=== PATIENT | male | born 1965 | race Caucasian/White ===

== ENCOUNTER 2023-06-07 20:50 | Emergency (ER) | payer OTHER ==
[2023-06-07 21:12] LABS: BASOPHILS % (AUTO) 0.5 %; BILIRUBIN,URINE NEGATIVE (NEGATIVE); EOSINOPHILS # (AUTO) 0.3 10^3/uL (0.0-0.7); GLUCOSE, URINE (UA) 500 mg/dL (NEGATIVE); HCT - HEMATOCRIT 43.8 % (42.0-52.0); HGB - HEMOGLOBIN 14.6 g/dL (14.0-18.0); KETONES,URINE (UA) NEGATIVE (NEGATIVE); LEUKOCYTE ESTERASE, URINE NEGATIVE (NEGATIVE); LYMPHOCYTES # (AUTO) 1.6 10^3/uL (1.5-3.5); MEAN CORPUSCULAR HEMOGLOBIN 29.3 pg (27.0-31.0); MEAN CORPUSCULAR HGB CONC 33.3 g/dL (32.0-36.0); MEAN PLATELET VOLUME 8.5 fL (7.4-11.4); MONOCYTES % (AUTO) 11.4 %; NEUTROPHILS # (AUTO) 5.6 10^3/uL (1.5-6.6); NITRITE,URINE NEGATIVE (NEGATIVE); OCCULT BLOOD,URINE SMALL (NEGATIVE); PLT - PLATELET COUNT 243 10^3/uL (130-450); PROTEIN,URINE NEGATIVE (NEGATIVE); RED BLOOD COUNT 4.98 10^6/uL (4.70-6.10); RED CELL DISTRIBUTION WIDTH 12.2 % (12.0-15.0); UROBILINOGEN,URINE 0.2 (NORMAL) E.U./dL (NORMAL); WHITE BLOOD COUNT 8.5 x10^3/uL (4.8-10.8)
[2023-06-07 21:15] LABS: CLARITY,URINE CLEAR (CLEAR)
[2023-06-07] MEDS ORDERED: SODIUM CHLORIDE 0.9% 1,000 ML IV STA (21:16)
[2023-06-07] MEDS ORDERED: KETOROLAC 15 MG/ML VIAL IVP STA (21:16)
[2023-06-07] MEDS ORDERED: MORPHINE 2 MG/ML CARPUJECT IVP STA (21:16)
--- NOTE | 2023-06-07 21:16 | ED Physician Documentation ---
PD HPI MALE - Stated complaint Stated Complaint: LT ABD PX - Chief complaint Chief Complaint: Abd Pain - History obtained from History obtained from: Patient - History of Present Illness Timing - onset: How many days ago (5) - Additional information Additional information: 57-year-old male presents by private vehicle from home for left-sided abdominal pain x1 week. Patient states that he has a history of kidney stones requiring lithotripsy and he feels like he may have a possible obstructing stone. He has been trying to push fluids but his pain seems stuck and so he is here today for evaluation. Last stone requiring lithotripsy was several years ago. Review of Systems Constitutional: denies: Fever, Chills GI: reports: Abdominal Pain. denies: Nausea, Vomiting Musculoskeletal: denies: Neck pain, Back pain, Extremity pain Neurologic: denies: Generalized weakness, Focal weakness, Numbness PD PAST MEDICAL HISTORY - Present Medications Home Medications: Ambulatory Orders Medication Instructions Recorded Confirmed ONDANSETRON ODT Prepack 2 [ZOFRAN 4 mg TL Q6H #30 tablet 06/07/23 ODT Prepack 2] Oxycodone HCl/Acetaminophen 1 tab PO DAILY PRN 06/07/23 06/07/23 [Oxycodone-Acetaminophen 5-325] Oxycodone HCl/Acetaminophen 1 each PO Q6H PRN #15 tablet 06/07/23 [Percocet 5-325 mg Tablet] Tamsulosin HCl [Flomax] 0.4 mg PO DAILY PRN 06/07/23 06/07/23 Tamsulosin [Flomax] 0.4 mg PO DAILY #30 cap 06/07/23 hydroCHLOROthiazide [Hydrodiuril] 25 mg PO DAILY 06/07/23 06/07/23 - Allergies Allergies/Adverse Reactions: Allergies Allergy/AdvReac Type Severity Reaction Status Date / Time No Known Drug Allergies Allergy Verified 06/07/23 20:57 PD ED PE NORMAL - Vitals Vital signs reviewed: Yes - General General: Alert and oriented X 3, No acute distress, Well developed/nourished - HEENT HEENT: Atraumatic - Neck Neck: Supple, no meningeal sign - Cardiac Cardiac: RRR, Strong equal pulses - Respiratory Respiratory: No respiratory distress, Clear bilaterally - Abdomen Abdomen: Soft, Other (LLQ tenderness to deep palpation) - Back Back: No CVA TTP, No spinal TTP - Derm Derm: Normal color, Warm and dry, No rash - Extremities Extremities: No deformity, No tenderness to palpate, Normal ROM s pain, No edema - Neuro Neuro: Alert and oriented X 3, 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, No motor deficit, Normal speech - Psych Psych: Normal mood, Normal affect Results - Vitals Vitals: Vital Signs - 24 hr 06/07/23 06/07/23 06/07/23 20:50 20:54 21:41 Temperature 36.0 C L 36.5 C Heart Rate 128 H 128 H 106 H Respiratory 16 16 16 Rate Blood Pressure 136/76 H 136/76 H 144/100 H O2 Saturation 97 97 96 06/07/23 06/07/23 23:00 23:20 Temperature 36.8 C 36.7 C Heart Rate 92 91 Respiratory 16 16 Rate Blood Pressure 127/90 H 127/90 H O2 Saturation 99 100 Oxygen O2 Source Room air - Labs Labs: Laboratory Tests 06/07/23 06/07/23 06/07/23 21:02 21:02 21:02 WBC 8.5 RBC 4.98 Hgb 14.6 Hct 43.8 MCV 88.0 MCH 29.3 MCHC 33.3 RDW 12.2 Plt Count 243 MPV 8.5 Neut # (Auto) 5.6 Lymph # (Auto) 1.6 [place] # (Auto) 1.0 Eos # (Auto) 0.3 Baso # (Auto) 0.0 Absolute Nucleated RBC 0.00 Nucleated RBC % 0.0 Sodium 134 L Potassium 3.2 L Chloride 97 L Carbon Dioxide 30 Anion Gap 7.0 BUN 24 H Creatinine 1.7 H Estimated GFR (MDRD) 42 L Glucose 193 H Calcium 9.8 Total Bilirubin 0.7 AST 12 ALT 12 Alkaline Phosphatase 60 Total Protein 7.3 Albumin 4.7 Globulin 2.6 Albumin/Globulin Ratio 1.8 Lipase 37 Urine Color YELLOW Urine Clarity CLEAR Urine pH 6.0 Ur Specific [place] 1.020 Urine Protein NEGATIVE Urine Glucose (UA) 500 H Urine Ketones NEGATIVE Urine Occult Blood SMALL H Urine Nitrite NEGATIVE Urine Bilirubin NEGATIVE Urine Urobilinogen 0.2 (NORMAL) Ur Leukocyte Esterase NEGATIVE Urine RBC 11-25 H Urine WBC 0-3 Ur Squamous Epith Cells NONE SEEN Urine Bacteria None Seen Ur Microscopic Review INDICATED Urine Culture Comments NOT INDICATED PD Medical Decision Making - ED course Complexity details: reviewed results, re-evaluated patient, considered differential, d/w patient, d/w family ED course: Well-appearing patient with persistent left-sided pain that is consistent with previous renal stones. Tachycardic in triage, however when in ED bed patient is resting comfortably and vital signs are normal. No CVA tenderness bilaterally. IV fluids, pain medications ordered. Will order labs and CT scan. Pain entirely resolved with administered medications. Laboratory work significant for creatinine 1.7, no previous for comparisons, patient does not know his normal kidney function. CT scan shows 6mm obstructing stone with some perinephric stranding. UA negative for infection. Patient and informed of all lab and imaging results at bedside. They requested a copy of the patient's CT on disc [place] Patient will be prescribed pain medications, nausea medications, Flomax. He was instructed to avoid any NSAIDs. Strict ED return precautions discussed. Departure - Departure Disposition: 01 Home, Self Care Clinical Impression: Renal colic Instructions: ED Stone Renal W Colic Prescriptions: Tamsulosin [Flomax] 0.4 mg PO DAILY #30 cap Oxycodone HCl/Acetaminophen [Percocet 5-325 mg Tablet] 1 each PO Q6H PRN #15 tablet PRN Reason: Pain 5-7 ONDANSETRON ODT Prepack 2 [ZOFRAN ODT Prepack 2] 4 mg TL Q6H #30 tablet Forms: PCP List Discharge Date/Time: 06/07/23 23:26
[2023-06-07 21:21] LABS: BACTERIA,URINE None Seen /HPF (None Seen); SQUAMOUS EPITHELIAL CELL,UR NONE SEEN (<= Few); WBC,URINE 0-3 /HPF (0-3)
[2023-06-07 21:36] LABS: ALBUMIN 4.7 g/dL (3.2-5.5); ALBUMIN/GLOBULIN RATIO 1.8 (1.0-2.2); BILIRUBIN,TOTAL 0.7 mg/dL (0.2-1.0); CALCIUM 9.8 mg/dL (8.5-10.3); CREATININE 1.7 mg/dL (0.6-1.3); POTASSIUM 3.2 mmol/L (3.5-4.5); TOTAL PROTEIN 7.3 g/dL (6.4-8.9)
--- NOTE | 2023-06-07 22:50 | CT Report ---
PROCEDURE: ABDOMEN/PELVIS WO INDICATIONS: LLQ PAIN, HX STONES TECHNIQUE: A CT scan of the abdomen and pelvis was performed without the use of intravenous contrast. Images we re recorded and evaluated at appropriate window settings. Reformats: coronal and sagittal. For radiat ion dose reduction, the following was used: automated exposure control, adjustment of mA and/or kV ac cording to patient size. COMPARISON: None. FINDINGS: Image quality: Excellent. Lung bases and heart: Unremarkable. Liver: No solid mass. Gallbladder and biliary tree: No radiopaque stones or wall thickening. No biliary dilation. Spleen: No splenomegaly. Pancreas: No pancreatic ductal dilation. Adrenals: No adrenal nodule. Kidneys and ureters: Multiple small punctate nonobstructing renal stones noted in the right kidney me asuring up to 4 mm in size. Right ureter is normal in course and caliber. There is moderate left hydr oureteronephrosis secondary to an obstructing 6 mm ureteral stone visualized in the mid left ureter. This stone measures approximately 900 Hounsfield units. Mild perinephric and periureteral stranding o n the left. Other nonobstructing left renal stones are visualized measuring up to 4 mm in size. No re nal cystic lesion which requires follow up. No solid mass. Bowel and peritoneum: No bowel distension. No pathologic free fluid. Normal appendix. Lymph nodes: No central or retroperitoneal adenopathy. Vessels: No infrarenal aortic aneurysm. Mild atherosclerotic calcifications. PELVIS Reproductive organs: Unremarkable. Bladder: No wall thickness, accounting for underdistention. Pelvic lymph nodes: No pelvic adenopathy by size criteria. Bones: No aggressive osseous abnormality. No acute compression fractures. Other: No significant ventral or inguinal hernia. IMPRESSION: Obstructing 6 mm mid left ureteral stone with associated moderate left hydroureteronephrosis. Mild le ft perinephric and periureteral stranding. Recommend clinical and laboratory correlation to exclude p ossible concurrent infectious uropathy. Additional punctate left renal stones measuring up to 4 mm as well as multiple small punctate nonobst ructing renal stones on the right measuring up to 4 mm. Normal appendix. Reviewed by: Dedrick Chen MD on 06/07/2023 10:48 PM PDT Approved by: Dedrick Chen MD on 06/07/2023 10:48 PM PDT Station ID: [id number]
[2023-06-07 23:17] VITALS: BP 127/90
[2023-06-07 23:26] VITALS: O2SAT 100
== END 2023-06-07 23:26 | disposition home or self-care (01) ==
LOC: ED 20:50
DX: N13.6 Pyonephrosis (principal)
CPT/HCPCS: 36415; 80053; 81001; 81003; 83690; 85025; 87086; 96361; 96374; 96375; 99284

== ENCOUNTER 2023-08-06 15:56 | Outpatient (CLI) | payer OTHER ==
--- NOTE | 2023-08-07 08:25 | Ultrasound Report ---
PROCEDURE: Retroperitoneal INDICATIONS: HIST KIDNEY STONES TECHNIQUE: Real-time scanning was performed of the retroperitoneal organs, with image documentation. COMPARISON: None. FINDINGS: Kidneys: Kidneys are normal in size. Right kidney measures 11.2 cm long; left kidney measures 11.3 cm long. Right renal cortical thickness is 2.3 cm; left renal cortical thickness is 1.8 cm. No vincent d masses or hydronephrosis. There are bilateral nonobstructing renal calculi measuring up to 6.7 mm o n the right and 7.3 mm on the left. Bladder: Pre-void bladder volume is 336.3 mL. Post-void residual is 27.7 mL. Pre-void images demon strate no intraluminal masses or stones. On pre-void images, bile ureteral jets are noted with color Doppler interrogation. (Of note, ureteral jets may not be detectable in up to 25% of cases due to i nsufficient differences in specific gravity between ureteral and bladder urine). Miscellaneous: No free abdominal fluid. IMPRESSION: 1. Bilateral nonobstructive nephrolithiasis. 2. Small to moderate post void residual. Reviewed by: Tati Jain MD on 08/07/2023 8:23 AM PST Approved by: Tati Jain MD on 08/07/2023 8:23 AM PST Station ID: [id number]
== END 2023-08-06 15:57 | disposition home or self-care (01) ==
LOC: DI 15:56
PROVIDERS: ATTEND Urology
DX: Z87.442 Personal history of urinary calculi (principal); R33.9 Retention of urine, unspecified